=== PATIENT | male | born 1970 | race Caucasian/White ===

== ENCOUNTER → 2023-03-06 13:47 | Outpatient (BNVA) | payer OTHER, SELFPAY | PROVIDERS: PCP Nurse Practitioner; Visit Provider Internal Medicine ==

== ENCOUNTER 2024-08-27 10:45 | Outpatient (RCR) | payer OTHER, SELFPAY | END 2024-10-03 15:08 | disposition home or self-care (01) | LOC: HO.WCC 10:45 | PROVIDERS: PCP Nurse Practitioner; Visit Provider Surgery | DX: I87.331 Chronic venous hypertension (idiopathic) with ulcer and inflammation of right lower extremity (principal); L97.312 Non-pressure chronic ulcer of right ankle with fat layer exposed; I10 Essential (primary) hypertension; Z95.2 Presence of prosthetic heart valve; Z95.0 Presence of cardiac pacemaker; Z79.891 Long term (current) use of opiate analgesic; Z79.899 Other long term (current) drug therapy | CPT/HCPCS: 97597; 99211 ==